=== PATIENT | male | born 1985 | race Caucasian/White ===

== ENCOUNTER → 2020-11-10 | Outpatient (CLI) | payer OTHER ==
--- NOTE | 2020-11-10 16:02 | RAD ---
Chest radiograph 11/10/2020 10:08 AM INDICATION: Covid 19 COMPARISON: None available TECHNIQUE: Frontal and lateral views of the chest are provided. FINDINGS: The cardiomediastinal silhouette is within normal limits. There are no pleural effusions. There is no pulmonary vascular congestion. There is no pneumothorax. Mild perihilar interstitial changes. No significant osseous abnormality is identified. Right humeral hardware is partially profiled. IMPRESSION: Mild perihilar interstitial changes may reflect interstitial pneumonitis in appropriate clinical sett ing. Electronically signed by: Terrie De Dios MD (11/10/2020 4:00 PM) [id number]
== END ==
LOC: DXRAD 09:51
PROVIDERS: ATTEND Internal Medicine
DX: J18.9 Pneumonia, unspecified organism (principal); U07.1 COVID-19
CPT/HCPCS: 71046